=== PATIENT | male | born 1950 | race American Indian/Alaskan Native ===

== ENCOUNTER 2017-06-15 14:57 | Inpatient (IN) | payer MEDICARE, OTHER ==
[2017-06-15 16:10] LABS: Basophils % (Auto) 0.2 % (0.0-1.8); Eosinophils # (Auto) 0.1 K/mm3 (0.0-0.4); Eosinophils % (Auto) 2.4 % (0.0-4.3); Hematocrit 41.2 % (35.5-45.6); Hemoglobin 13.9 gm/dl (11.8-15.2); Lymphocytes # (Auto) 1.8 K/mm3 (1.2-5.4); Lymphocytes % (Auto) 29.7 % (13.4-35.0); Mean Corpuscular HGB Conc 34 % (32-34); Mean Corpuscular Hemoglobin 30 pg (28-32); Mean Corpuscular Volume 90 fl (84-94); Monocytes # (Auto) 0.4 K/mm3 (0.0-0.8); Monocytes % (Auto) 7.4 % (0.0-7.3); Platelet Count 250 K/mm3 (140-440); Red Blood Count 4.57 M/mm3 (3.65-5.03); Red Cell Distribution Width 14.5 % (13.2-15.2)
[2017-06-15 16:29] LABS: Alanine Aminotransferase 15 units/L (7-56); Albumin 4.1 g/dL (3.9-5); BUN/Creatinine Ratio 16; Blood Urea Nitrogen 13 mg/dL (9-20); Calcium 8.9 mg/dL (8.4-10.2); Hemolysis Index 22
--- NOTE | 2017-06-15 16:45 | Cat Scan Report ---
FINAL REPORT EXAM: CT HEAD/BRAIN WO CON HISTORY: Syncope TECHNIQUE: CT head without contrast PRIORS: Comparison is dated December 19, 2013 FINDINGS: No acute intra-axial or extra-axial hemorrhage is identified. There is no evidence of midline shift or mass effect. The ventricles and sulci are within normal limits. Mack-white matter differentiation is intact. No acute parenchymal abnormalities seen. There are patchy and confluent hypodensities within the supratentorial white matter. Bony calvarium is grossly intact. Visualized portions of the mastoids and paranasal sinuses are unremarkable. IMPRESSION: Chronic ischemic changes No acute abnormality identified
[2017-06-15 16:48] LABS: Bilirubin,Urine NEG (Negative); Blood,Urine SM (Negative); Color,Urine Yellow (Yellow); Mucus,Urine 2+ /HPF; Nitrite,Urine NEG (Negative)
--- NOTE | 2017-06-16 00:43 | XRay Report ---
FINAL REPORT EXAM: XR HAND 2V RT HISTORY: hand pain,laceration TECHNIQUE: Frontal and lateral views of right hand. PRIORS: None. FINDINGS: Degenerative changes scattered in the MCP and IP joints. No apparent fracture or dislocation. Soft tissues grossly unremarkable. IMPRESSION: 1. No acute osseous abnormality. 2. Degenerative changes.
[2017-06-16 00:44] LABS: Creatine Kinase MB 1.7 ng/mL (0.0-4.0)
--- NOTE | 2017-06-16 00:45 | XRay Report ---
FINAL REPORT EXAM: XR CHEST 1V AP HISTORY: chest pain TECHNIQUE: Single, portable chest x-ray. PRIORS: None. FINDINGS: Postsurgical changes project over the heart. Rightward tracheal deviation, nonspecific. Cardiac silhouette within normal limits. Lungs are normally expanded, without significant vascular congestion. No focal consolidation or apparent pneumothorax. Bony thorax grossly unremarkable. IMPRESSION: 1. Rightward tracheal deviation may be due to thyromegaly and goitrous change, but nonspecific. Clinical correlation and followup may be warranted. 2. No other acute findings.
[2017-06-16] MEDS ORDERED: NACL 0.9% 500 ML IR ONE ×3 (02:23→04:06)
[2017-06-16] MEDS ORDERED: XYLOCAINE 2% INFILTRATI ONE ×2 (02:23→04:55)
--- NOTE | 2017-06-16 04:27 | Emergency Department Report ---
ED Syncope HPI - General Chief Complaint: Syncope Stated Complaint: RIGHT HAND INJURY Time Seen by Provider: 06/15/17 23:47 Source: patient (unable to give accurate history he's had 2 prior CVA and has some dysarthria), family ( and grandchild are here to give history but known was with him when the syncopal episode occurred) Exam Limitations: language barrier (dysarthria secondary to stroke) - History of Present Illness Initial Comments: 58-year-old male with chief complaint of syncope and right hand laceration. Patient was getting in the bathtub and then the found him down. It is unknown whether he had a syncopal episode, was dizzy or had any chest pain. Patient has had 2 prior strokes and has severe dysarthria. Timing/Prior Episodes: no prior history Precipitating Factors: Positive: unknown Context: standing Loss of Consciousness: no loss of consciousness Current Symptoms: back to normal, injury (right hand laceration) - Related Data Allergies/Adverse Reactions: Allergies No Known Allergies Allergy (Verified 06/15/17 15:38) Home Medications: Ambulatory Orders Aspirin [Aspirin TAB] 325 mg PO QDAY #30 tablet 01/12/14 Atenolol [Tenormin] 25 mg PO DAILY #30 tablet 01/12/14 Lisinopril/Hydrochlorothiazide [Zestoretic 20-12.5 mg] 20 mg PO DAILY #30 tablet 01/12/14 Memantine HCl [Namenda] 5 mg PO BID #60 tablet 01/12/14 Ranitidine HCl [Ranitidine 150mg Cap] 150 mg PO BID #60 capsule 01/12/14 Rosuvastatin (Nf) [Crestor] 20 mg PO QHS #30 tablet 01/12/14 Sertraline HCl 75 mg PO DAILY #30 tablet 01/12/14 chlorproMAZINE [Thorazine INJ] 25 mg IV Q6H PRN #10 amp 01/12/14 glipiZIDE [Glucotrol] 2.5 mg PO QDDIAB #60 tablet 01/12/14 Benzonatate [Tessalon Perles] 100 mg PO Q8HR #30 capsule 10/01/15 Levofloxacin [Levaquin TAB] 500 mg PO QDAY #10 tablet 10/01/15 ED Review of Systems ROS: Stated complaint: RIGHT HAND INJURY Other details as noted in HPI Constitutional: denies: chills, fever Eyes: denies: eye pain, eye discharge, vision change ENT: denies: ear pain, throat pain Respiratory: denies: cough, shortness of breath, wheezing Cardiovascular: denies: chest pain, palpitations Endocrine: no symptoms reported Gastrointestinal: denies: abdominal pain, nausea, diarrhea Genitourinary: denies: urgency, dysuria Musculoskeletal: denies: back pain, joint swelling, arthralgia Skin: lesions (laceration of the right palmar surface). denies: rash Neurological: denies: headache, weakness, paresthesias Psychiatric: denies: anxiety, depression Hematological/Lymphatic: denies: easy bleeding, easy bruising ED Past Medical Hx - Past Medical History Hx Hypertension: Yes Hx Heart Attack/AMI: Yes (s/p CABG x 20 yrs ago) Hx Congestive Heart Failure: No Hx Diabetes: Yes Hx Headaches / Migraines: No Hx COPD: No Hx Dementia: Yes - Surgical History Hx Open Heart Surgery: Yes (cabg 20 yrs ago) Hx Pacemaker: No - Social History Smoking Status: Never Smoker Substance Use Type: None - Medications Home Medications: Home Medications Medication Instructions Recorded Confirmed Last Taken Type Aspirin [Aspirin TAB] 325 mg PO QDAY #30 tablet 01/12/14 10/01/15 Unknown Rx Atenolol [Tenormin] 25 mg PO DAILY #30 tablet 01/12/14 10/01/15 Unknown Rx Lisinopril/Hydrochlorothiazide 20 mg PO DAILY #30 tablet 01/12/14 10/01/15 Unknown Rx [Zestoretic 20-12.5 mg] Memantine HCl [Namenda] 5 mg PO BID #60 tablet 01/12/14 10/01/15 Unknown Rx Ranitidine HCl [Ranitidine 150mg 150 mg PO BID #60 capsule 01/12/14 10/01/15 Unknown Rx Cap] Rosuvastatin (Nf) [Crestor] 20 mg PO QHS #30 tablet 01/12/14 10/01/15 Unknown Rx Sertraline HCl 75 mg PO DAILY #30 tablet 01/12/14 10/01/15 Unknown Rx chlorproMAZINE [Thorazine INJ] 25 mg IV Q6H PRN #10 amp 01/12/14 10/01/15 Unknown Rx glipiZIDE [Glucotrol] 2.5 mg PO QDDIAB #60 tablet 01/12/14 10/01/15 Unknown Rx Benzonatate [Tessalon Perles] 100 mg PO Q8HR #30 capsule 10/01/15 Unknown Rx Levofloxacin [Levaquin TAB] 500 mg PO QDAY #10 tablet 10/01/15 Unknown Rx ED Physical Exam - General Limitations: Physical Limitation General appearance: alert, in no apparent distress - Head Head exam: Present: atraumatic, normocephalic - Eye Eye exam: Present: EOMI - ENT ENT exam: Present: mucous membranes moist - Neck Neck exam: Present: normal inspection, full ROM - Respiratory Respiratory exam: Present: normal lung sounds bilaterally. Absent: wheezes, rales, rhonchi - Cardiovascular Cardiovascular Exam: Present: regular rate, normal rhythm - GI/Abdominal GI/Abdominal exam: Present: soft. Absent: distended, tenderness - Rectal Rectal exam: Present: deferred - Extremities Exam Extremities exam: Present: full ROM (full range of motion in all extremities), tenderness (tenderness over the right upper extremity palmar surface there is a laceration) - Back Exam Back exam: Present: normal inspection, full ROM - Neurological Exam Neurological exam: Present: alert, oriented X3, CN II-XII intact - Psychiatric Psychiatric exam: Present: normal affect, normal mood - Skin Skin exam: Present: warm, dry, other (right hand laceration actively bleeding) ED Course Vital Signs 06/15/17 06/15/17 06/16/17 15:38 22:15 00:09 Temperature 98.1 F 98.1 F Pulse Rate 63 57 L Respiratory 16 18 Rate Blood Pressure 150/82 181/77 Blood Pressure 150/82 [Right] O2 Sat by Pulse 98 98 97 Oximetry - Laceration /Wound Repair Right Hand Wound Location: upper extremity Wound Explored: no foreign body removed Irrigated w/ Saline (ccs): 1,000 Betadine Prep?: Yes Anesthesia: 1% Lidocaine Wound Debrided: minimal Wound Repaired With: sutures Suture Size/Type: 3:0 Number of Sutures: 19 Layer Closure?: No Sterile Dressing Applied?: Yes - Nerve Block Consent Obtained: verbal consent Time Out Performed: Yes Local Anesthetic Used: Lidocaine 1% Amount of anesthesia used: 5 Side: right Nerve Blocks: median, radial Procedure Successful: Yes Complications: none Patient Tolerated Procedure: well ED Medical Decision Making - Lab Data Result diagrams: 06/15/17 15:55 06/15/17 15:55 - EKG Data -: EKG Interpreted by Me EKG shows normal: sinus rhythm, axis, intervals, QRS complexes (she V1 and V2) Rate: bradycardia Critical care attestation.: If time is entered above; I have spent that time in minutes in the direct care of this critically ill patient, excluding procedure time. ED Disposition Clinical Impression: Syncope Qualifiers: Syncope type: unspecified Qualified Code(s): R55 - Syncope and collapse Laceration of right hand Qualifiers: Encounter type: initial encounter Foreign body presence: without foreign body Qualified Code(s): S61.411A - Laceration without foreign body of right hand, initial encounter Dementia Qualifiers: Dementia type: unspecified type Dementia behavioral disturbance: with behavioral disturbance Qualified Code(s): F03.91 - Unspecified dementia with behavioral disturbance Hyperglycemia due to type 2 diabetes mellitus Qualifiers: Diabetes mellitus technician terminal and repeater insulin use: unspecified intermediate insulin use status Qualified Code(s): E11.65 - Type 2 diabetes mellitus with hyperglycemia Disposition: -09 OP ADMIT IP TO THIS HOSP Is pt being admited?: Yes Does the pt Need Aspirin: No Condition: Serious Instructions: Syncope (ED), Diabetes Mellitus Type 2 in Adults (ED) [facility]errals: [facility] [Other] - 3-5 Days Time of Disposition: 04:34 (Dr. NOGUEIRA was paged and the case was reviewed with him. He will admit the patient to the hospital)
[2017-06-16] MEDS ORDERED: NACL 0.9% IR ONE (04:54)
[2017-06-16] MEDS ORDERED: THORAZINE IV PRN (05:05)
[2017-06-16] MEDS ORDERED: PHENERGAN PR PRN (05:07)
[2017-06-16] MEDS ORDERED: PROVENTIL IH PRN (05:07)
[2017-06-16] MEDS ORDERED: TYLENOL PO PRN (05:07)
[2017-06-16] MEDS ORDERED: SODIUM CHLORIDE FLUSH SYRINGE 10 ML IV PRN (05:07)
[2017-06-16] MEDS ORDERED: ZOFRAN IV PRN (05:07)
[2017-06-16] MEDS ORDERED: DULCOLAX PR PRN (05:07)
[2017-06-16] MEDS ORDERED: D50W (25GM) Syringe IV PRN (05:07)
[2017-06-16] MEDS ORDERED: MILK OF MAGNESIA PO PRN (05:07)
[2017-06-16] MEDS ORDERED: REGLAN PO PRN (05:07)
--- NOTE | 2017-06-16 05:25 | History and Physical Report ---
History of Present Illness Date of examination: 06/16/17 Chief complaint: Fall History of present illness: 58-year-old -Dominican male with past medical history significant for stroke 2, dementia, CAD status post CABG, hypertension, diabetes mellitus, hyperlipidemia, hypokalemia presented to the emergency department because of complaints of fall down injury in the shower. Patient has stuttering speech after his previous strokes and most of the history is obtained from his . Patient was in the shower and for done and he has laceration of his right hand and stitches were done. Patient denied loss of consciousness, didn't hit his head. Per his patient had loss of balance studies previous strokes. Patient denied any seizure-like activities. REVIEW OF SYSTEMS: GENERAL: no weight change, no fatigue, no fever HEAD: no head ache EYES: no blurry vision, no acute visual loss EARS: no hearing loss, no discharge, no earache NOSE: no stuffiness, no sneezing, no discharge MOUTH, THROAT AND NECK: no bleeding gums, no sore throat, no swollen neck CARDIAC: no palpitations, no dyspnea on exertion, no orthopnea, no PND, no edema , no chest pain RESPIRATORY: no shortness of breath, no wheeze, no cough, no sputum, no hemoptysis, no asthma GI: no decreased appetite, no nausea, no vomiting, no dysphagia, no diarrhea, no constipation, no abdominal pain URINARY: no change in frequency, no urgency, no polyuria, no hematuria, no incontinence MUSCULOSKELETAL: no muscle weakness, no pain, no joint stiffness NEUROLOGIC: no loss of sensation/numbness, no tingling, no tremors, no weakness/ paralysis HEMATOLOGIC: no anemia, no easy bruising SKIN: no rashes ENDOCRINE: no heat/cold intolerance, no polyuria, no polydipsia, no thyroid problems, + diabetes PSYCHIATRIC: no anxiety, no depression, no suicidal ideations Past History Past Medical History: CAD, diabetes, hypertension, hyperlipidemia Past Surgical History: CABG Social history: full code. denies: smoking, alcohol abuse, prescription drug abuse, IV drug use Family history: no significant family history Medications and Allergies Allergies Allergy/AdvReac Type Severity Reaction Status Date / Time No Known Allergies Allergy Verified 06/15/17 15:38 Home Medications Medication Instructions Recorded Confirmed Last Taken Type Aspirin [Aspirin TAB] 325 mg PO QDAY #30 tablet 01/12/14 10/01/15 Unknown Rx Atenolol [Tenormin] 25 mg PO DAILY #30 tablet 01/12/14 10/01/15 Unknown Rx Lisinopril/Hydrochlorothiazide 20 mg PO DAILY #30 tablet 01/12/14 10/01/15 Unknown Rx [Zestoretic 20-12.5 mg] Memantine HCl [Namenda] 5 mg PO BID #60 tablet 01/12/14 10/01/15 Unknown Rx Ranitidine HCl [Ranitidine 150mg 150 mg PO BID #60 capsule 01/12/14 10/01/15 Unknown Rx Cap] Rosuvastatin (Nf) [Crestor] 20 mg PO QHS #30 tablet 01/12/14 10/01/15 Unknown Rx Sertraline HCl 75 mg PO DAILY #30 tablet 01/12/14 10/01/15 Unknown Rx chlorproMAZINE [Thorazine INJ] 25 mg IV Q6H PRN #10 amp 01/12/14 10/01/15 Unknown Rx glipiZIDE [Glucotrol] 2.5 mg PO QDDIAB #60 tablet 01/12/14 10/01/15 Unknown Rx Benzonatate [Tessalon Perles] 100 mg PO Q8HR #30 capsule 10/01/15 Unknown Rx Levofloxacin [Levaquin TAB] 500 mg PO QDAY #10 tablet 10/01/15 Unknown Rx Active Meds: Active Medications Aspirin (Aspirin) 325 mg PO QDAY [facility]ITA Benzonatate (Tessalon Perles) 100 mg PO Q8HR RITA Chlorpromazine HCl (Thorazine) 25 mg IV Q6H PRN PRN Reason: Hiccups Glipizide (Glucotrol) 2.5 mg PO QDDIAB [facility] Heparin Sodium (Porcine) (Heparin) 5,000 unit SUB-Q Q8HR [facility] Memantine (Namenda) 5 mg PO BID [facility] Miscellaneous Medication (Atenolol) 25 mg PO DAILY [facility] Miscellaneous Medication (Lisinopril/Hydrochlorothiazide [Zestoretic 20-12.5 Mg] ) 20 mg PO DAILY [facility] Miscellaneous Medication (Ranitidine Hcl [Ranitidine 150mg Cap]) 150 mg PO BID [facility] Miscellaneous Medication (Rosuvastatin (Nf)) 20 mg PO QHS [facility] Sertraline HCl (Zoloft) 75 mg PO DAILY [facility]ITA Exam - Physical Exam Narrative exam: Not in cardiopulmonary distress. The patient appeared well nourished and normally developed. Vital signs as documented. Head exam is unremarkable. No scleral icterus . Neck is without jugular venous distension, thyromegaly, or carotid bruits. Lungs are clear to auscultation. Cardiac exam reveals regular rate and Rhythm. First and second heart sounds normal. No murmurs, rubs or gallops. Abdominal exam reveals normal bowel sounds, no masses, no organomegaly and no aortic enlargement. Extremities are nonedematous and both femoral and pedal pulses are normal. 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 No focal weakness. Stuttering speech - Constitutional Vitals: Temp Pulse Resp BP Pulse Ox 98.1 F 57 L 18 181/77 97 06/15/17 22:15 06/15/17 22:15 06/15/17 22:15 06/15/17 22:15 06/16/17 00:09 Results - Labs CBC & Chem 7: 06/15/17 15:55 06/15/17 15:55 Labs: Laboratory Last Values WBC 6.0 K/mm3 (4.5-11.0) 06/15/17 15:55 RBC 4.57 M/mm3 (3.65-5.03) 06/15/17 15:55 Hgb 13.9 gm/dl (11.8-15.2) 06/15/17 15:55 Hct 41.2 % (35.5-45.6) 06/15/17 15:55 MCV 90 fl (84-94) 06/15/17 15:55 MCH 30 pg (28-32) 06/15/17 15:55 MCHC 34 % (32-34) 06/15/17 15:55 RDW 14.5 % (13.2-15.2) 06/15/17 15:55 Plt Count 250 K/mm3 (140-440) 06/15/17 15:55 Lymph % (Auto) 29.7 % (13.4-35.0) 06/15/17 15:55 [place] % (Auto) 7.4 % (0.0-7.3) H 06/15/17 15:55 Eos % (Auto) 2.4 % (0.0-4.3) 06/15/17 15:55 Baso % (Auto) 0.2 % (0.0-1.8) 06/15/17 15:55 Lymph # 1.8 K/mm3 (1.2-5.4) 06/15/17 15:55 [place] # 0.4 K/mm3 (0.0-0.8) 06/15/17 15:55 Eos # 0.1 K/mm3 (0.0-0.4) 06/15/17 15:55 Baso # 0.0 K/mm3 (0.0-0.1) 06/15/17 15:55 Seg Neutrophils % 60.3 % (40.0-70.0) 06/15/17 15:55 Seg Neutrophils # 3.6 K/mm3 (1.8-7.7) 06/15/17 15:55 D-Dimer 135.00 ng/mlDDU (0-234) 06/16/17 00:01 Sodium 142 mmol/L (137-145) 06/15/17 15:55 Potassium 3.7 mmol/L (3.6-5.0) 06/15/17 15:55 Chloride 100.5 mmol/L (98-107) 06/15/17 15:55 Carbon Dioxide 28 mmol/L (22-30) 06/15/17 15:55 Anion Gap 17 mmol/L 06/15/17 15:55 BUN 13 mg/dL (9-20) 06/15/17 15:55 Creatinine 0.8 mg/dL (0.8-1.5) 06/15/17 15:55 Estimated GFR > 60 ml/min 06/15/17 15:55 BUN/Creatinine Ratio 16 % 06/15/17 15:55 Glucose 137 mg/dL (75-100) H 06/15/17 15:55 Calcium 8.9 mg/dL (8.4-10.2) 06/15/17 15:55 Total Bilirubin 0.30 mg/dL (0.1-1.2) 06/15/17 15:55 AST 16 units/L (5-40) 06/15/17 15:55 ALT 15 units/L (7-56) 06/15/17 15:55 Alkaline Phosphatase 159 units/L (35-129) H 06/15/17 15:55 Total Creatine Kinase 87 units/L (55-170) 06/16/17 00:01 CK-MB (CK-2) 1.7 ng/mL (0.0-4.0) 06/16/17 00:01 CK-MB (CK-2) Rel Index 1.9 (0-4) 06/16/17 00:01 Troponin T < 0.010 ng/mL (0.00-0.029) 06/16/17 00:01 Total Protein 7.0 g/dL (6.3-8.2) 06/15/17 15:55 Albumin 4.1 g/dL (3.9-5) 06/15/17 15:55 Albumin/Globulin Ratio 1.4 % 06/15/17 15:55 Urine Color Yellow (Yellow) 06/15/17 16:09 Urine Turbidity Clear (Clear) 06/15/17 16:09 Urine pH 5.0 (5.0-7.0) 06/15/17 16:09 Ur Specific [place] 1.027 (1.003-1.030) 06/15/17 16:09 Urine Protein 30 mg/dl mg/dL (Negative) 06/15/17 16:09 Urine Glucose (UA) Neg mg/dL (Negative) 06/15/17 16:09 Urine Ketones Neg mg/dL (Negative) 06/15/17 16:09 Urine Blood Sm (Negative) 06/15/17 16:09 Urine Nitrite Neg (Negative) 06/15/17 16:09 Urine Bilirubin Neg (Negative) 06/15/17 16:09 Urine Urobilinogen 4.0 mg/dL (<2.0) 06/15/17 16:09 Ur Leukocyte Esterase Neg (Negative) 06/15/17 16:09 Urine WBC (Auto) 1.0 /HPF (0.0-6.0) 06/15/17 16:09 Urine RBC (Auto) 7.0 /HPF (0.0-6.0) 06/15/17 16:09 U Epithel Cells (Auto) < 1.0 /HPF (0-13.0) 06/15/17 16:09 Urine Mucus 2+ /HPF 06/15/17 16:09 - Imaging and Cardiology Chest x-ray: report reviewed (thyromegaly) CT Scan - head: report reviewed (no acute findings) Assessment and Plan Assessment and plan: Fall/ autonomic dysfunction loss of balance history of CVA CAD status post CABG Hypertension Diabetes mellitus Hyperlipidemia - Bilateral carotid Doppler, MRI of head - Resume appropriate home medications - Physical therapy DVT prophylaxis - Heparin Disposition - To telemetry floor Advance Directives: Yes VTE prophylaxis?: Chemical Plan of care discussed with patient/family: Yes
[2017-06-16] MEDS ORDERED: THORAZINE 25 MG in NACL 0.9% 50 ML IV PRN (05:50)
[2017-06-16] MEDS: HEPARIN SUB-Q SCH ×3 (07:13→22:59)
[2017-06-16] MEDS: TESSALON PERLES PO SCH ×3 (07:14→22:58)
[2017-06-16] MEDS: NOVOLOG SUB-Q SCH ×4 (07:57→22:59)
[2017-06-16] MEDS ORDERED: NON-FORMULARY (Lisinopril/Hydrochlorothiazide [Zestoretic 20-12.5 Mg] 20 MG) PO SCH (10:00)
[2017-06-16] MEDS ORDERED: ATENOLOL 25 MG PO SCH (10:00)
[2017-06-16] MEDS ORDERED: NON-FORMULARY (Ranitidine Hcl [Ranitidine 150mg Cap] 150 MG) PO SCH (10:00)
[2017-06-16] MEDS: ZOLOFT PO SCH (10:10)
[2017-06-16] MEDS: TENORMIN PO SCH (10:10)
[2017-06-16] MEDS: GLUCOTROL PO SCH (10:10)
[2017-06-16] MEDS: PEPCID PO SCH ×2 (10:10→22:58)
[2017-06-16] MEDS: HCTZ PO SCH (10:11)
[2017-06-16] MEDS: ZESTRIL PO SCH (10:11)
[2017-06-16] MEDS: ASPIRIN PO SCH (10:11)
[2017-06-16] MEDS: COLACE PO SCH ×2 (10:11→22:58)
[2017-06-16] MEDS: NAMENDA PO SCH ×2 (13:34→22:58)
--- NOTE | 2017-06-16 15:00 | Event Note ---
Date: 06/16/17 Patient seen and evaluated Fall/Syncope meds reviewed
--- NOTE | 2017-06-16 18:06 | Magnetic Resonance Report ---
FINAL REPORT EXAM: MR BRAIN WO CON HISTORY: stroke TECHNIQUE: MRI brain without contrast PRIORS: None. FINDINGS: No evidence for acute restriction on diffusion weighted study to suggest presence acute infarct. Remote lacunar infarcts are present within tito, basal ganglia and frontal lobes bilaterally along with confluent areas of T2 increased signal consistent with remote ischemic changes. No acute intra or extra-axial hemorrhage identified. No evidence for mass effect or midline shift. Ventricles and sulci are mildly prominent consistent with age related volume loss. IMPRESSION: Remote ischemic changes No acute abnormality identified
[2017-06-16] MEDS ORDERED: NON-FORMULARY (Rosuvastatin (Nf) 20 MG) PO SCH (22:00)
[2017-06-17] MEDS: TESSALON PERLES PO SCH ×2 (06:18→17:36)
[2017-06-17] MEDS: HEPARIN SUB-Q SCH ×2 (06:18→14:00)
[2017-06-17 06:29] LABS: Chol/HDL Ratio 2.5 %
[2017-06-17] MEDS: NOVOLOG SUB-Q SCH ×2 (07:30→11:00)
[2017-06-17] MEDS: GLUCOTROL PO SCH (09:28)
[2017-06-17] MEDS: HCTZ PO SCH (09:29)
[2017-06-17] MEDS: ASPIRIN PO SCH (09:29)
[2017-06-17] MEDS: TENORMIN PO SCH (09:29)
[2017-06-17] MEDS: PEPCID PO SCH (09:30)
[2017-06-17] MEDS: ZESTRIL PO SCH (09:30)
[2017-06-17] MEDS: NAMENDA PO SCH (09:30)
[2017-06-17] MEDS: COLACE PO SCH (09:30)
[2017-06-17] MEDS: ZOLOFT PO SCH (09:31)
[2017-06-17] MEDS ORDERED: Fluarix Quad 2017-2018(36 MOS+ IM ONE (12:00)
[2017-06-17 12:46] VITALS: BP 170/88
--- NOTE | 2017-06-17 15:25 | Discharge Summary ---
Providers - Providers Date of Admission: 06/16/17 05:04 Date of discharge: 06/17/17 Attending physician: RACHAEL LINTON 06/16/17 05:07 Consult to Case Management [CONS] Routine Services Needed at Discharge: Physical Therapy Notified:: MANNY Occupational Therapy Evaluate and Treat [CONS] Routine Comment: Reason For Exam: Neuro deficits Physical Therapy Evaluation and Treat [CONS] Routine Comment: Reason For Exam: Neuro deficits 06/16/17 05:08 Speech Therapy Evaluation and Treat [CONS] Routine Reason For Exam: swallow eval Hospitalization Reason for admission: syncope Condition: Serious Hospital course: 58-year-old -Iranian male with past medical history significant for stroke 2, dementia, CAD status post CABG, hypertension, diabetes mellitus, hyperlipidemia, hypokalemia presented to the emergency department because of complaints of fall down injury in the shower. Patient has stuttering speech after his previous strokes and most of the history is obtained from his . Patient was in the shower and fell down and suffered laceration of his right hand and stitches were done. Patient denied loss of consciousness, didn't hit his head. Per his , patient had loss of balance , which is consistent with previous strokes. Patient denied any seizure-like activities. Patient's is refusing any rehabilitation placement. Echocardiogram was essentially negative with exception of reduced EF of 30%. Patient with no history of CHF. Patient with no acute CHF exacerbation on this admission. Patient should follow -up with focusing machine operator outpatient. Carotid ultrasound showed no stenosis and MRI was essentially negative with exception of the remote ischemia from previous CVA. Dedicated discharge time 35 minutes. Disposition: ME-01 TO HOME OR SELFCARE Time spent for discharge: 35 Core Measure Documentation - Palliative Care Palliative Care/ Comfort Measures: Not Applicable - Core Measures Any of the following diagnoses?: none Exam - Constitutional Vitals: Temp Pulse Resp BP Pulse Ox 98.3 F 51 L 20 170/88 95 06/17/17 12:45 06/17/17 12:45 06/17/17 12:45 06/17/17 12:45 06/17/17 12:45 General appearance: Present: no acute distress, well-nourished - EENT Eyes: Present: PERRL ENT: hearing intact, clear oral mucosa - Neck Neck: Present: supple, normal ROM - Respiratory Respiratory effort: normal Respiratory: bilateral: CTA - Cardiovascular Heart Sounds: Present: S1 & S2. Absent: rub, click - Extremities Extremities: pulses symmetrical, No edema Peripheral Pulses: within normal limits - Abdominal General gastrointestinal: Present: soft, non-tender, non-distended, normal bowel sounds Male genitourinary: Present: normal - Integumentary Integumentary: Present: clear, warm, dry - Musculoskeletal Musculoskeletal: gait normal, strength equal bilaterally - Psychiatric Psychiatric: appropriate mood/affect, intact judgment & insight - Neurologic Neurologic: CNII-XII intact, moves all extremities Plan Activity: advance as tolerated Weight Bearing Status: Weight Bear as Tolerated Diet: diabetic Follow up with: [facility] [Other] - 3-5 Days
--- NOTE | 2017-06-22 14:44 | Vascular Lab Report ---
CAROTID DUPLEX STUDY: RIGHT PSVEDV CCA PROX:8211 CCA DIST:7313 ICA PROX:6114 ICA MID:7922 ICA DIST:9122 ECA: 7616 VERT: 16 4 LEFT PSVEDV CCA PROX:13422 CCA DIST:8716 ICA PROX:6916 ICA MID:7317 ICA DIST:9022 ECA: 7610 VERT: 51 11 REASON FOR EXAM: Stroke. COMMENTS ON THE RIGHT: Doppler frequency analysis is consistent with 16 to 49 percent diameter reduction of the internal carotid artery. A moderate amount of plaque is seen. The common carotid artery is patent. The external carotid artery is patent. The vertebral artery has antegrade flow. COMMENTS ON THE LEFT: Doppler frequency analysis is consistent with 16 to 49 percent diameter reduction of the internal carotid artery. A moderate amount of plaque is seen. The common carotid artery is patent. The external carotid artery is patent. The vertebral artery has antegrade flow. IMPRESSION: Less than 50% diameter reduction in the internal carotid arteries bilaterally. Consider repeat carotid artery duplex in 12 months.
== END 2017-06-17 17:12 | disposition home or self-care (01) | DRG 74 ==
LOC: ED 14:57 → 4A 06-16 05:04
PROVIDERS: ADMIT Internal Medicine; ATTEND Hospitalist
PROC: 0HQFXZZ Repair Right Hand Skin, External Approach (ICD-10-PCS; principal; 2017-06-16)
DX: G90.9 Disorder of the autonomic nervous system, unspecified (principal); F45.8 Other somatoform disorders; E11.9 Type 2 diabetes mellitus without complications; E78.5 Hyperlipidemia, unspecified; I10 Essential (primary) hypertension; S61.411A Laceration without foreign body of right hand, initial encounter; W18.30XA Fall on same level, unspecified, initial encounter; F03.90 Unspecified dementia, unspecified severity, without behavioral disturbance, psychotic disturbance, mood disturbance, and anxiety; Y93.89 Activity, other specified; Y92.89 Other specified places as the place of occurrence of the external cause; Z79.82 Long term (current) use of aspirin; Z95.1 Presence of aortocoronary bypass graft; Z79.899 Other long term (current) drug therapy; I25.2 Old myocardial infarction; Z86.73 Personal history of transient ischemic attack (TIA), and cerebral infarction without residual deficits
CPT/HCPCS: 36415; 70450; 70551; 71045; 80053; 80061; 81001; 82550; 82553; 82962; 84484; 85025; 85379; 90686; 93005; 93010; 93306; 93880; A9270-GY; G8996-GN; G8997-GN; J1644; J1815

== ENCOUNTER 2017-07-14 20:45 | Emergency (ER) | payer OTHER ==
--- NOTE | 2017-07-14 22:02 | Emergency Department Report ---
ED Altered Mental Status HPI - General Chief Complaint: Altered Mental Status Stated Complaint: AMS Time Seen by Provider: 07/14/17 21:52 Source: family, EMS Mode of arrival: Stretcher Limitations: Altered Mental Status - History of Present Illness Initial Comments: This is a 66-year-old gentleman with dementia and a past medical history significant for CHF with an ejection fraction of about 30%, CAD, diabetes mellitus type 2, hypertension, hypercholesterolemia, CABG, CVA 2, hypokalemia with a recent hospitalization on 06/16/2017 for a fall that he had sustained. Today, the states that he was sitting at the dining table in his usual state of health when he got up and proceeded to take his jacket off. The thought that the patient must have been hot, because she noticed he was sweating on his forehead. The tried to talk to the patient but he did not respond to her. The patient does have dementia and stutters when he speaks. The did check his blood pressure and noticed that it was "70/60." She brings into the emergency room for further evaluation. At triage his blood pressure was 117/66. He is also back to his baseline status per the . His oxygen saturation is 100% on room air. His respiratory rates are 18 and his pulse is 58. Initial EKG just shows a junctional rhythm with no acute ST changes. MD Complaint: altered mental status -: Gradual Severity: mild Consistency of Symptoms: waxing and waning Associated Symptoms: diaphoresis. denies: chest pain, cough, fever/chills, headaches, loss of appetite, malaise, nausea/vomiting, rash, seizure, shortness of breath, syncope, difficulty walking, diarrhea, incontinence - Related Data Home Medications Medication Instructions Recorded Confirmed Last Taken AtorvaSTATin [Lipitor] 80 mg PO QHS 07/15/17 07/15/17 Unknown Carvedilol 12.5 mg PO BID 07/15/17 07/15/17 Unknown Clopidogrel Bisulfate [Plavix] 75 mg PO DAILY 07/15/17 07/15/17 Unknown ISOSORBIDE MONOnitrate [Imdur ER] 60 mg PO QDAY 07/15/17 07/15/17 Unknown Losartan [Cozaar] 50 mg PO QDAY 07/15/17 07/15/17 Unknown Memantine HCl [Namenda] 10 mg PO BID 07/15/17 07/15/17 Unknown NIFEdipine [Procardia] 90 mg PO QDAY 07/15/17 07/15/17 Unknown Potassium Chloride 40 meq PO DAILY 07/15/17 07/15/17 Unknown Sertraline HCl 50 mg PO DAILY 07/15/17 07/15/17 Unknown metFORMIN [Glucophage] 1,000 mg PO BID 07/15/17 07/15/17 Unknown Previous Rx's Medication Instructions Recorded Last Taken Type Ranitidine HCl [Ranitidine 150mg 150 mg PO BID #60 capsule 01/12/14 1 Day Ago Rx Cap] ~06/16/17 Allergies Allergy/AdvReac Type Severity Reaction Status Date / Time No Known Allergies Allergy Verified 06/15/17 15:38 ED Review of Systems ROS: Stated complaint: AMS Other details as noted in HPI Comment: Unobtainable due to pts medical conditions (patient has dementia, the gives most of this information. He denies any symptoms at present.) Constitutional: see HPI Eyes: as per HPI ENT: as per HPI Respiratory: see HPI Cardiovascular: as per HPI. denies: chest pain, palpitations Endocrine: see HPI Gastrointestinal: as per HPI Genitourinary: as per HPI Musculoskeletal: as per HPI Skin: as per HPI Neurological: as per HPI Psychiatric: as per HPI ED Past Medical Hx - Past Medical History Hx Hypertension: Yes Hx Heart Attack/AMI: Yes Hx Congestive Heart Failure: Yes Hx Diabetes: Yes Hx Arthritis: Yes Hx Headaches / Migraines: No Hx COPD: No Hx Dementia: Yes - Surgical History Hx Coronary Stent: Yes Hx Open Heart Surgery: Yes Hx Pacemaker: No - Social History Smoking Status: Never Smoker Substance Use Type: None - Medications Home Medications: Home Medications Medication Instructions Recorded Confirmed Last Taken Type Ranitidine HCl [Ranitidine 150mg 150 mg PO BID #60 capsule 01/12/14 07/15/17 1 Day Ago Rx Cap] ~06/16/17 AtorvaSTATin [Lipitor] 80 mg PO QHS 07/15/17 07/15/17 Unknown History Carvedilol 12.5 mg PO BID 07/15/17 07/15/17 Unknown History Clopidogrel Bisulfate [Plavix] 75 mg PO DAILY 07/15/17 07/15/17 Unknown History ISOSORBIDE MONOnitrate [Imdur ER] 60 mg PO QDAY 07/15/17 07/15/17 Unknown History Losartan [Cozaar] 50 mg PO QDAY 07/15/17 07/15/17 Unknown History Memantine HCl [Namenda] 10 mg PO BID 07/15/17 07/15/17 Unknown History NIFEdipine [Procardia] 90 mg PO QDAY 07/15/17 07/15/17 Unknown History Potassium Chloride 40 meq PO DAILY 07/15/17 07/15/17 Unknown History Sertraline HCl 50 mg PO DAILY 07/15/17 07/15/17 Unknown History metFORMIN [Glucophage] 1,000 mg PO BID 07/15/17 07/15/17 Unknown History ED Physical Exam - General Limitations: Altered Mental Status General appearance: alert, in no apparent distress - Head Head exam: Present: atraumatic - Eye Eye exam: Present: normal appearance, PERRL, EOMI - ENT ENT exam: Present: normal orophraynx, mucous membranes moist - Neck Neck exam: Present: normal inspection - Respiratory Respiratory exam: Present: normal lung sounds bilaterally. Absent: respiratory distress, wheezes, rales, rhonchi - Cardiovascular Cardiovascular Exam: Present: regular rate, normal rhythm - GI/Abdominal GI/Abdominal exam: Present: soft, normal bowel sounds - Rectal Rectal exam: Present: deferred - Extremities Exam Extremities exam: Present: normal inspection, full ROM - Back Exam Back exam: Present: normal inspection - Neurological Exam Neurological exam: Present: alert, oriented X3, CN II-XII intact - Psychiatric Psychiatric exam: Present: normal affect - Skin Skin exam: Present: warm, dry, intact, normal color ED Course Vital Signs 07/14/17 07/14/17 07/14/17 20:50 21:00 21:08 Temperature 97.7 F Pulse Rate 58 L Respiratory 18 Rate Blood Pressure 117/66 117/66 Blood Pressure [Left] O2 Sat by Pulse 100 100 100 Oximetry 07/14/17 07/14/17 07/14/17 21:16 21:30 21:46 Temperature Pulse Rate 57 L 56 L 59 L Respiratory 16 14 23 Rate Blood Pressure 117/66 117/66 117/66 Blood Pressure [Left] O2 Sat by Pulse 99 99 100 Oximetry 07/14/17 07/14/17 07/14/17 22:00 22:16 22:30 Temperature Pulse Rate 62 66 61 Respiratory 12 13 30 H Rate Blood Pressure 117/66 117/66 117/66 Blood Pressure [Left] O2 Sat by Pulse 100 100 100 Oximetry 07/14/17 07/14/17 07/14/17 22:46 23:00 23:05 Temperature Pulse Rate 60 58 L 58 L Respiratory 25 H 19 22 Rate Blood Pressure 118/71 118/71 Blood Pressure 118/71 [Left] O2 Sat by Pulse 99 100 100 Oximetry 07/14/17 07/14/17 07/14/17 23:16 23:30 23:46 Temperature Pulse Rate 60 60 60 Respiratory 14 13 16 Rate Blood Pressure 121/73 121/73 121/73 Blood Pressure [Left] O2 Sat by Pulse 100 100 Oximetry 07/15/17 07/15/17 07/15/17 00:00 00:16 00:30 Temperature Pulse Rate 68 70 75 Respiratory 19 16 19 Rate Blood Pressure 121/73 126/76 121/73 Blood Pressure [Left] O2 Sat by Pulse 99 98 99 Oximetry 07/15/17 00:46 Temperature Pulse Rate 84 Respiratory 13 Rate Blood Pressure 126/76 Blood Pressure [Left] O2 Sat by Pulse 97 Oximetry - Reevaluation(s) Reevaluation #1: 07/15/17 00:12 It appears that the patient is back at his baseline. His blood work is actually unremarkable. Urinalysis is still pending. His lactic acid is however elevated at 3.5. We will go ahead and repeat that and make sure that it is trending down. At this time he has no other findings. I discussed the case with the hospitalist as well. The patient does not meet criteria for admission at this time. 07/15/17 01:45 The patient's repeat lactic acid is coming down to 2.5. I feel that the patient can go ahead and be discharged at this time. Explained to the that if she has any other concerns that she can bring him back as needed. She expresses understanding. - Lab Data Result diagrams: 07/14/17 22:05 07/14/17 22:05 Lab Results 07/14/17 07/14/17 07/14/17 Range/Units 21:46 22:05 22:05 WBC 10.9 (4.5-11.0) K/mm3 RBC 4.71 (3.65-5.03) M/mm3 Hgb 14.5 (11.8-15.2) gm/dl Hct 43.1 (35.5-45.6) % MCV 91 (84-94) fl MCH 31 (28-32) pg MCHC 34 (32-34) % RDW 14.3 (13.2-15.2) % Plt Count 229 (140-440) K/mm3 Lymph % (Auto) 18.1 (13.4-35.0) % [place] % (Auto) 5.4 (0.0-7.3) % Eos % (Auto) 1.1 (0.0-4.3) % Baso % (Auto) 0.4 (0.0-1.8) % Lymph # 2.0 (1.2-5.4) K/mm3 [place] # 0.6 (0.0-0.8) K/mm3 Eos # 0.1 (0.0-0.4) K/mm3 Baso # 0.0 (0.0-0.1) K/mm3 Seg Neutrophils % 75.0 H (40.0-70.0) % Seg Neutrophils # 8.2 H (1.8-7.7) K/mm3 PT (12.2-14.9) Sec. INR (0.87-1.13) APTT (24.2-36.6) Sec. Sodium (137-145) mmol/L Potassium (3.6-5.0) mmol/L Chloride (98-107) mmol/L Carbon Dioxide (22-30) mmol/L Anion Gap mmol/L BUN (9-20) mg/dL Creatinine (0.8-1.5) mg/dL Estimated GFR ml/min BUN/Creatinine Ratio % Glucose (75-100) mg/dL POC Glucose 173 H (70-105) Lactic Acid (0.7-2.0) mmol/L Calcium (8.4-10.2) mg/dL Total Bilirubin (0.1-1.2) mg/dL AST (5-40) units/L ALT (7-56) units/L Alkaline Phosphatase (35-129) units/L Troponin T < 0.010 (0.00-0.029) ng/mL NT-Pro-B Natriuret Pep (0-900) pg/mL Total Protein (6.3-8.2) g/dL Albumin (3.9-5) g/dL Albumin/Globulin Ratio % Urine Color (Yellow) Urine Turbidity (Clear) Urine pH (5.0-7.0) Ur Specific [place] (1.003-1.030) Urine Protein (Negative) mg/dL Urine Glucose (UA) (Negative) mg/dL Urine Ketones (Negative) mg/dL Urine Blood (Negative) Urine Nitrite (Negative) Urine Bilirubin (Negative) Urine Urobilinogen (<2.0) mg/dL Ur Leukocyte Esterase (Negative) Urine WBC (Auto) (0.0-6.0) /HPF Urine RBC (Auto) (0.0-6.0) /HPF Hyaline Casts /LPF Urine Mucus /HPF 07/14/17 07/14/17 07/14/17 Range/Units 22:05 22:05 22:05 WBC (4.5-11.0) K/mm3 RBC (3.65-5.03) M/mm3 Hgb (11.8-15.2) gm/dl Hct (35.5-45.6) % MCV (84-94) fl MCH (28-32) pg MCHC (32-34) % RDW (13.2-15.2) % Plt Count (140-440) K/mm3 Lymph % (Auto) (13.4-35.0) % [place] % (Auto) (0.0-7.3) % Eos % (Auto) (0.0-4.3) % Baso % (Auto) (0.0-1.8) % Lymph # (1.2-5.4) K/mm3 [place] # (0.0-0.8) K/mm3 Eos # (0.0-0.4) K/mm3 Baso # (0.0-0.1) K/mm3 Seg Neutrophils % (40.0-70.0) % Seg Neutrophils # (1.8-7.7) K/mm3 PT 12.5 (12.2-14.9) Sec. INR 0.89 (0.87-1.13) APTT 27.5 (24.2-36.6) Sec. Sodium 140 (137-145) mmol/L Potassium 3.7 (3.6-5.0) mmol/L Chloride 101.2 (98-107) mmol/L Carbon Dioxide 22 (22-30) mmol/L Anion Gap 21 mmol/L BUN 12 (9-20) mg/dL Creatinine 0.9 (0.8-1.5) mg/dL Estimated GFR > 60 ml/min BUN/Creatinine Ratio 13 % Glucose 129 H (75-100) mg/dL POC Glucose (70-105) Lactic Acid 3.50 H* (0.7-2.0) mmol/L Calcium 8.9 (8.4-10.2) mg/dL Total Bilirubin 0.20 (0.1-1.2) mg/dL AST 11 (5-40) units/L ALT 9 (7-56) units/L Alkaline Phosphatase 141 H (35-129) units/L Troponin T (0.00-0.029) ng/mL NT-Pro-B Natriuret Pep (0-900) pg/mL Total Protein 7.2 (6.3-8.2) g/dL Albumin 4.0 (3.9-5) g/dL Albumin/Globulin Ratio 1.3 % Urine Color (Yellow) Urine Turbidity (Clear) Urine pH (5.0-7.0) Ur Specific [place] (1.003-1.030) Urine Protein (Negative) mg/dL Urine Glucose (UA) (Negative) mg/dL Urine Ketones (Negative) mg/dL Urine Blood (Negative) Urine Nitrite (Negative) Urine Bilirubin (Negative) Urine Urobilinogen (<2.0) mg/dL Ur Leukocyte Esterase (Negative) Urine WBC (Auto) (0.0-6.0) /HPF Urine RBC (Auto) (0.0-6.0) /HPF Hyaline Casts /LPF Urine Mucus /HPF 07/14/17 07/14/17 07/15/17 Range/Units 22:05 23:00 00:24 WBC (4.5-11.0) K/mm3 RBC (3.65-5.03) M/mm3 Hgb (11.8-15.2) gm/dl Hct (35.5-45.6) % MCV (84-94) fl MCH (28-32) pg MCHC (32-34) % RDW (13.2-15.2) % Plt Count (140-440) K/mm3 Lymph % (Auto) (13.4-35.0) % [place] % (Auto) (0.0-7.3) % Eos % (Auto) (0.0-4.3) % Baso % (Auto) (0.0-1.8) % Lymph # (1.2-5.4) K/mm3 [place] # (0.0-0.8) K/mm3 Eos # (0.0-0.4) K/mm3 Baso # (0.0-0.1) K/mm3 Seg Neutrophils % (40.0-70.0) % Seg Neutrophils # (1.8-7.7) K/mm3 PT (12.2-14.9) Sec. INR (0.87-1.13) APTT (24.2-36.6) Sec. Sodium (137-145) mmol/L Potassium (3.6-5.0) mmol/L Chloride (98-107) mmol/L Carbon Dioxide (22-30) mmol/L Anion Gap mmol/L BUN (9-20) mg/dL Creatinine (0.8-1.5) mg/dL Estimated GFR ml/min BUN/Creatinine Ratio % Glucose (75-100) mg/dL POC Glucose (70-105) Lactic Acid 2.50 H* (0.7-2.0) mmol/L Calcium (8.4-10.2) mg/dL Total Bilirubin (0.1-1.2) mg/dL AST (5-40) units/L ALT (7-56) units/L Alkaline Phosphatase (35-129) units/L Troponin T (0.00-0.029) ng/mL NT-Pro-B Natriuret Pep 287.4 (0-900) pg/mL Total Protein (6.3-8.2) g/dL Albumin (3.9-5) g/dL Albumin/Globulin Ratio % Urine Color Yellow (Yellow) Urine Turbidity Clear (Clear) Urine pH 6.0 (5.0-7.0) Ur Specific [place] 1.017 (1.003-1.030) Urine Protein <15 mg/dl (Negative) mg/dL Urine Glucose (UA) Neg (Negative) mg/dL Urine Ketones Neg (Negative) mg/dL Urine Blood Neg (Negative) Urine Nitrite Neg (Negative) Urine Bilirubin Neg (Negative) Urine Urobilinogen 2.0 (<2.0) mg/dL Ur Leukocyte Esterase Neg (Negative) Urine WBC (Auto) 1.0 (0.0-6.0) /HPF Urine RBC (Auto) 1.0 (0.0-6.0) /HPF Hyaline Casts 1 /LPF Urine Mucus 1+ /HPF Critical care attestation.: If time is entered above; I have spent that time in minutes in the direct care of this critically ill patient, excluding procedure time. ED Disposition Clinical Impression: Hypotension Qualifiers: Hypotension type: unspecified hypotension type Qualified Code(s): I95.9 - Hypotension, unspecified Altered mental status Qualifiers: Altered mental status type: transient alteration of awareness Qualified Code(s) : R40.4 - Transient alteration of awareness Disposition: DC-01 TO HOME OR SELFCARE Is pt being admited?: No Does the pt Need Aspirin: No Condition: Stable Instructions: Hypotension (ED) Additional Instructions: Rest, fluids, follow up with her primary care doctor, watch for worsening or new symptoms, return as needed, you feel like you're having a life-threatening emergency L 911 immediately. Referrals: OLINDA SANTO MD [Primary Care Provider] - 3-5 Days
[2017-07-14 22:28] LABS: Basophils % (Auto) 0.4 % (0.0-1.8); Eosinophils # (Auto) 0.1 K/mm3 (0.0-0.4); Eosinophils % (Auto) 1.1 % (0.0-4.3); Hematocrit 43.1 % (35.5-45.6); Hemoglobin 14.5 gm/dl (11.8-15.2); Lymphocytes % (Auto) 18.1 % (13.4-35.0); Mean Corpuscular HGB Conc 34 % (32-34); Mean Corpuscular Hemoglobin 31 pg (28-32); Mean Corpuscular Volume 91 fl (84-94); Monocytes # (Auto) 0.6 K/mm3 (0.0-0.8); Monocytes % (Auto) 5.4 % (0.0-7.3); Platelet Count 229 K/mm3 (140-440); Red Blood Count 4.71 M/mm3 (3.65-5.03); Red Cell Distribution Width 14.3 % (13.2-15.2)
--- NOTE | 2017-07-14 22:33 | XRay Report ---
FINAL REPORT PROCEDURE: XR CHEST 1V AP TECHNIQUE: Chest radiograph anteroposterior view. CPT 66881 HISTORY: Altered Mental Status COMPARISON: 06/15/2017 FINDINGS: Heart: There has been bypass surgery. Normal contour Mediastinum/Vessels: Normal. Lungs/Pleural space: No infiltrate, effusion, or pneumothorax. Bony thorax: No acute osseous abnormality. Life support devices: None. IMPRESSION: No radiographic evidence of acute cardiopulmonary abnormality.
[2017-07-14 22:40] LABS: INR 0.89 (0.87-1.13); Partial Thromboplastin Time 27.5 Sec. (24.2-36.6)
[2017-07-14 22:48] LABS: Alanine Aminotransferase 9 units/L (7-56); BUN/Creatinine Ratio 13; Blood Urea Nitrogen 12 mg/dL (9-20); Calcium 8.9 mg/dL (8.4-10.2); Hemolysis Index 11
[2017-07-15 00:35] LABS: Bilirubin,Urine NEG (Negative); Blood,Urine NEG (Negative); Color,Urine Yellow (Yellow); Hyaline Casts,Urine 1 /LPF; Mucus,Urine 1+ /HPF; Nitrite,Urine NEG (Negative); Protein,Urine <15 mg/dL mg/dL (Negative)
[2017-07-15 02:04] VITALS: BP 122/78
== END 2017-07-15 02:30 | disposition home or self-care (01) ==
LOC: ED 20:45
DX: R41.82 Altered mental status, unspecified (principal); I95.9 Hypotension, unspecified; I11.0 Hypertensive heart disease with heart failure; I50.9 Heart failure, unspecified; E11.9 Type 2 diabetes mellitus without complications; M19.90 Unspecified osteoarthritis, unspecified site
CPT/HCPCS: 36415; 71045; 80053; 81001; 82140; 82962; 83880; 84484; 85025; 85610; 85730; 93005; 93010; 99284

== ENCOUNTER 2019-01-21 02:00 | Emergency (ER) | payer OTHER ==
--- NOTE | 2019-01-21 02:27 | Emergency Department Report ---
ED CPR HPI - General Chief Complaint: Cardiac Arrest/CPR Stated Complaint: CARDIAC ARREST Time Seen by Provider: 01/21/19 02:00 Source: family, EMS, old records reviewed Mode of arrival: Stretcher Limitations: Other - History of Present Illness Initial Comments: 68-year-old male presents to the hospital cardiopulmonary arrest. Speaking to his at 1:10 AM. Upon EMS arrival at 1:20 AM patient was pulseless and apneic. In route patient received intubation with ET tube, CPR, with ACLS. He received epinephrine 3, defibrillation for V. fib 4, amiodarone 300 times one, and Narcan 2 mg 1. No return of spontaneous circulation despite resuscitation efforts. Patient presents with PEA arrest. Glucose 119. - Related Data Home Medications Medication Instructions Recorded Confirmed Last Taken AtorvaSTATin [Lipitor] 80 mg PO QHS 07/15/17 07/15/17 Unknown Carvedilol 12.5 mg PO BID 07/15/17 07/15/17 Unknown Clopidogrel Bisulfate [Plavix] 75 mg PO DAILY 07/15/17 07/15/17 Unknown ISOSORBIDE MONOnitrate [Imdur ER] 60 mg PO QDAY 07/15/17 07/15/17 Unknown Losartan [Cozaar] 50 mg PO QDAY 07/15/17 07/15/17 Unknown Memantine HCl [Namenda] 10 mg PO BID 07/15/17 07/15/17 Unknown NIFEdipine [Procardia] 90 mg PO QDAY 07/15/17 07/15/17 Unknown Potassium Chloride 40 meq PO DAILY 07/15/17 07/15/17 Unknown Sertraline HCl 50 mg PO DAILY 07/15/17 07/15/17 Unknown metFORMIN [Glucophage] 1,000 mg PO BID 07/15/17 07/15/17 Unknown Previous Rx's Medication Instructions Recorded Last Taken Type raNITIdine HCl [Ranitidine 150mg 150 mg PO BID #60 capsule 01/12/14 1 Day Ago Rx Cap] ~06/16/17 Allergies Allergy/AdvReac Type Severity Reaction Status Date / Time No Known Allergies Allergy Verified 06/15/17 15:38 ED Review of Systems ROS: Stated complaint: CARDIAC ARREST Other details as noted in HPI Comment: Unobtainable due to pts medical conditions ED Past Medical Hx - Past Medical History Previous Medical History?: Yes Hx Hypertension: Yes Hx Heart Attack/AMI: Yes Hx Congestive Heart Failure: Yes Hx Diabetes: Yes Hx Arthritis: Yes Hx Headaches / Migraines: No Hx COPD: No Hx Dementia: Yes - Surgical History Past Surgical History?: Yes Hx Coronary Stent: Yes Hx Open Heart Surgery: Yes Hx Pacemaker: No - Social History Smoking Status: Never Smoker Substance Use Type: None - Medications Home Medications: Home Medications Medication Instructions Recorded Confirmed Last Taken Type raNITIdine HCl [Ranitidine 150mg 150 mg PO BID #60 capsule 01/12/14 07/15/17 1 Day Ago Rx Cap] ~06/16/17 AtorvaSTATin [Lipitor] 80 mg PO QHS 07/15/17 07/15/17 Unknown History Carvedilol 12.5 mg PO BID 07/15/17 07/15/17 Unknown History Clopidogrel Bisulfate [Plavix] 75 mg PO DAILY 07/15/17 07/15/17 Unknown History ISOSORBIDE MONOnitrate [Imdur ER] 60 mg PO QDAY 07/15/17 07/15/17 Unknown History Losartan [Cozaar] 50 mg PO QDAY 07/15/17 07/15/17 Unknown History Memantine HCl [Namenda] 10 mg PO BID 07/15/17 07/15/17 Unknown History NIFEdipine [Procardia] 90 mg PO QDAY 07/15/17 07/15/17 Unknown History Potassium Chloride 40 meq PO DAILY 07/15/17 07/15/17 Unknown History Sertraline HCl 50 mg PO DAILY 07/15/17 07/15/17 Unknown History metFORMIN [Glucophage] 1,000 mg PO BID 07/15/17 07/15/17 Unknown History ED Physical Exam - General Limitations: Other - Other Other exam information: General: Unresponsive Head: Atraumatic, normocephalic Eyes: Pupils fixed and dilated ENT: Orally intubated with ET tube with blood coming from ET tube (started upon arrival as per EMS) Neck: Normal appearance Cardiovascular: Pulseless Chest: Intermittent spontaneous respirations, equal breath sounds with bagging Abdomen: nondistended, soft, nontender, no rebound or guarding Extremity: Normal appearance, no spontaneous movement Neuro: DCS equals 3 Skin: No warmth, erythema ED Course - Reevaluation(s) Reevaluation #1: 01/21/19 02:45 Resuscitation efforts continued in the ED for PEA arrest with an episode of V. fib arrest. No improvement despite most multiple doses of epinephrine, defibrillation 1, IV lidocaine, an IV sodium bicarbonate. Please refer to code sheet for details. ED Medical Decision Making - Medical Decision Making pt's family informed of his . time of : 2:13 - Differential Diagnosis OR, arrhythmia, PE, CVA Critical Care Time: Yes Critical care time in (mins) excluding proc time.: 30 Critical care attestation.: If time is entered above; I have spent that time in minutes in the direct care of this critically ill patient, excluding procedure time. ED Disposition Clinical Impression: Cardiopulmonary arrest Disposition: DC-20 Is pt being admited?: No Condition: Stable Time of Disposition: 03:02
== END 2019-01-21 04:23 ==
LOC: ED 02:00
DX: I46.9 Cardiac arrest, cause unspecified (principal); I11.0 Hypertensive heart disease with heart failure; I50.9 Heart failure, unspecified; E11.9 Type 2 diabetes mellitus without complications; M19.90 Unspecified osteoarthritis, unspecified site; G43.909 Migraine, unspecified, not intractable, without status migrainosus; F03.90 Unspecified dementia, unspecified severity, without behavioral disturbance, psychotic disturbance, mood disturbance, and anxiety; Z88.8 Allergy status to other drugs, medicaments and biological substances; Z79.899 Other long term (current) drug therapy
CPT/HCPCS: 92950